=== PATIENT | male | born 1960 | race Caucasian/White ===

== ENCOUNTER → 2020-12-06 09:20 | Outpatient (CLI) | payer MEDICARE ==
[2016-08-25 08:04] VITALS: BMI 28.7
[~2020-12-06 09:20] MED LIST: ALBUTEROL SULF8.5 GM INH; ATIVAN1 MG PO; BAYER CHEWABLE81 MG PO; CRESTOR40 MG PO; EFFEXOR XR150 MG PO; FLOMAX0.4 MG PO; GLUCOPHAGE1000 MG PO; HYZAAR 100-12.51 TAB PO; ISOSORBIDE MONO60 M1 PO; K-TAB10 MEQ PO; LIPITOR80 MG PO; METOPROLOL TART50 MG PO; NORVASC10 MG PO; OMEPRAZOLE20 M1 PO; PAXIL40 MG PO; PLAVIX75 MG PO; PREVACID30 MG PO; TRIGLIDE160 MG PO; ZETIA10 MG PO
== END | disposition home or self-care (01) ==
LOC: D.LAB 09:20
PROVIDERS: ATTEND Thoracic Surgery (Cardiothoracic Vascular Surgery)
DX: C34.90 Malignant neoplasm of unspecified part of unspecified bronchus or lung (principal); E11.9 Type 2 diabetes mellitus without complications

== ENCOUNTER 2021-02-13 11:53 | Inpatient (IN) | payer MEDICARE ==
[~2021-02-13] VITALS: Ht 177.8 cm; Wt 98.2 kg
[2021-02-14] MEDS ORDERED: ABILIFY10 MG PO (14:05)
[2021-02-14] MEDS ORDERED: FUROSEMIDE20 MG PO (14:06)
[2021-02-14] MEDS ORDERED: OXYBUTYNIN CHLOR5 MG PO (14:08)
[2021-02-14] MEDS ORDERED: LIPITOR80 MG PO (14:10)
[2021-02-14] MEDS ORDERED: PROSCAR5 MG PO (14:10)
[2021-02-14] MEDS ORDERED: NORVASC10 MG PO (14:11)
[2021-02-14] MEDS ORDERED: NITROSTAT0.4 MG SL (14:13)
[2021-02-14] MEDS ORDERED: ANORO ELLIPTA1 EACH INH (14:14)
[2021-02-14] MEDS ORDERED: LANTUS INS100 UNITS/ SC (14:16)
[2021-02-14] MEDS ORDERED: HUMULIN R100 UNIT/1 SC (14:16)
[2021-02-14 15:28] LABS: HEMATOCRIT 38.2 % (42.0-54.0); HEMOGLOBIN 12.4 g/dL (13.5-17.5); MCH 28.2 pg (26.0-34.0); MCHC 32.5 g/dL (31.0-37.0); MCV 86.8 fL (80.0-100.0); MEAN PLATELET VOLUME 10.2 fL (7.4-10.4); RBC 4.4 10x6/uL (4.20-6.10); RDW 14.2 % (11.5-14.5); WBC 7.2 10x3/uL (4.8-10.8)
[2021-02-14 15:30] LABS: APTT 25.8 SECONDS (22.8-39.4); INR 0.94 (0.85-1.17); PROTIME 11.6 SECONDS (11.6-15.0)
[2021-02-14 15:32] LABS: ALBUMIN 4.2 g/dL (3.4-5.0); ANION GAP 12.4 mmol/L (8-16); BILIRUBIN - TOTAL 0.27 mg/dL (0.2-1.3); CALCIUM 9.7 mg/dL (8.5-10.1); CARBON DIOXIDE 30.5 mmol/L (21.0-32.0); CREATININE - SERUM 1.4 mg/dL (0.6-1.3); POTASSIUM - SERUM 3.9 mmol/L (3.5-5.1); PROTEIN - SERUM 7.2 g/dL (6.4-8.2)
[2021-02-14 15:54] LABS: BILIRUBIN NEGATIVE (NEGATIVE); KETONE NEGATIVE (NEGATIVE); NITRITE NEGATIVE (NEGATIVE); UROBILINOGEN NORMAL mg/dL (< 2)
[2021-02-18] VITALS (26 sets, daily range): BP systolic 90–148; BP diastolic 39–74; BMI 31.6
--- NOTE | 2021-02-18 09:55 | NUR ---
CVL AND ARTERIAL LINE PLACED BY ANESTHESIA, IZAIAH.
--- NOTE | 2021-02-18 19:25 | NUR ---
Pt resting in bed and doing well with his coughing and deep breathing. The Pt is off his rosetta and insulin gtt. Assessment per flow sheet. Pt has chest tubes x 2 with epidural/[employer]. Popeye Velasco and hospitalist consulted.
[2021-02-19] VITALS (33 sets, daily range): BP systolic 109–156; BP diastolic 41–69; Ht 177.8 cm; Wt 98.2 kg
[2021-02-19 05:32] LABS: BASOPHILS 0.3 % (0-2); EOSINOPHILS 0.1 % (0-7); HEMATOCRIT 31.6 % (42.0-54.0); HEMOGLOBIN 10.7 g/dL (13.5-17.5); LYMPHOCYTES 10.2 % (15-50); MCH 28.4 pg (26.0-34.0); MCHC 33.8 g/dL (31.0-37.0); MEAN PLATELET VOLUME 7.8 fL (7.4-10.4); MONOCYTES 8.1 % (2-11); NEUTROPHILS 81.3 % (40-80); PLATELET COUNT 186 10x3/uL (130-400); RBC 3.76 10x6/uL (4.20-6.10); RDW 15.1 % (11.5-14.5); WBC 10.3 10x3/uL (4.8-10.8)
[2021-02-19 06:11] LABS: ANION GAP 13.9 mmol/L (8-16); BILIRUBIN - TOTAL 0.18 mg/dL (0.2-1.3); CALCIUM 8.2 mg/dL (8.5-10.1); CARBON DIOXIDE 26.9 mmol/L (21.0-32.0); CREATININE - SERUM 1.4 mg/dL (0.6-1.3); POTASSIUM - SERUM 3.8 mmol/L (3.5-5.1); PROTEIN - SERUM 5.7 g/dL (6.4-8.2)
--- NOTE | 2021-02-19 13:25 | OP ---
PATIENT NAME: IGNACIO MORRIS MEDICAL RECORD: [id number] :56 [facility] DATE:02/18/21 SURGEON: GARY WYATT MD DATE OF OPERATION: 02/18/2021 SURGEON: Gary Wyatt MD PROCEDURES PERFORMED: 1. Left upper lobectomy. 2. Mediastinal lymph node dissection. 3. Bronchoscopy. PREOPERATIVE DIAGNOSIS: Non-small cell lung cancer. POSTOPERATIVE DIAGNOSIS: Stage IIIA non-small cell lung cancer. ANESTHESIA: Double lumen general endotracheal anesthesia. ESTIMATED BLOOD LOSS: 100 cc. COMPLICATIONS: None. SPECIMENS: 1. Left upper lobe. 2. Frozen section AP window lymph node. 3. Cultures of therese pus from left upper lobe. 4. Mediastinal lymph nodes sections from AP window, inferior pulmonary ligament, and hilar stations superior, anterior, posterior, and middle. No sizable subcarinal lymph nodes were identified. CONDITION: Stable. DISPOSITION: ICU. OPERATIVE FINDINGS: As expected large lymph nodes around the major vessels at the hilum limiting ability to proceed with safe thoracoscopic surgery. The AP window lymph node was sent for frozen and returned metastatic non-small cell carcinoma. In the medial aspect of the left upper lobe adjacent to the hilum was a circumscribed area that drained therese pus and was cultured. It was unclear if this was a lymph node within the parenchyma or more likely a lung abscess due to bronchial obstruction from the tumor in the left upper lobe. The remainder of the lymph nodes appeared to be anthracotic. Bronchus airtight under 20 cm positive pressure. OPERATIVE INDICATION: Non-small cell carcinoma by percutaneous biopsy of left upper lobe. DESCRIPTION OF PROCEDURE: The patient was brought to the operating suite, double lumen general endotracheal anesthesia was obtained. Position was confirmed by bronchoscopy. The patient turned to the right lateral decubitus position with a separate bronchoscopy performed. Later the tube had to be inserted slightly under bronchoscopic guidance. Left chest was sterilely prepped and draped. Lateral thoracotomy was performed visualizing the hilum. It was freed. Large lymph nodes were noted and OPERATIVE REPORT [id number] IGNACIO MORRIS thoracotomy incision was enlarged. Anterior working port from the scope was later used as chest tube site. The large AP window lymph node was sent for frozen. The branches of the pulmonary artery were dissected out in the fissure, but the superior branch was next to this area of firmness that drained pus. It was only able to be rotated posteriorly after dividing the superior pulmonary vein. The inferior pulmonary ligament was freed up to the inferior pulmonary vein, which was visualized and left intact. Bronchus was then clamped. Lower lobe briefly ventilated, bronchus divided and finally the last superior branch divided with a stapling device. The bronchus was airtight under water at the posterior aspect of the superior segment. Two sites were repaired primarily. No air leak under water. Mediastinal lymph node dissection proceeded. Chest tube was placed superiorly and inferiorly. Lung reinflated. Chest closed with pericostal sutures after using cryotherapy. Two muscle layers, subcutaneous and subcuticular. The patient to ICU stable with respiratory variation, but no air leak. TRANSINT:[id number] Voice Confirmation ID: [id number] DOCUMENT ID: [id number] cc: paola Portillo. GARY WYATT MD at 1325 CC: JUSTICE RIBEIRO MD [id number] DICTATION DATE: 02/18/21 1453 DIRECTOR OF FOOD AND NUTRITION: 02/18/[address] [facility] [address] [place] [address]
--- NOTE | 2021-02-19 15:19 | NUR ---
CVL AND CT DRESSING CHANGED
--- NOTE | 2021-02-19 18:44 | NUR ---
A LINE DCD NO SIGNS OF BLEEDING
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
[2021-02-20] VITALS (44 sets, daily range): BP systolic 109–157; BP diastolic 48–86
[2021-02-20 05:16] LABS: ALBUMIN 2.7 g/dL (3.4-5.0); ANION GAP 9.8 mmol/L (8-16); BASOPHILS 0.4 % (0-2); BILIRUBIN - TOTAL 0.27 mg/dL (0.2-1.3); CALCIUM 8.2 mg/dL (8.5-10.1); CARBON DIOXIDE 28.9 mmol/L (21.0-32.0); CREATININE - SERUM 1.2 mg/dL (0.6-1.3); EOSINOPHILS 0.3 % (0-7); HEMATOCRIT 30.8 % (42.0-54.0); HEMOGLOBIN 10.3 g/dL (13.5-17.5); LYMPHOCYTES 12.2 % (15-50); MCH 28.1 pg (26.0-34.0); MCHC 33.4 g/dL (31.0-37.0); MCV 84.1 fL (80.0-100.0); MEAN PLATELET VOLUME 7.9 fL (7.4-10.4); MONOCYTES 9.5 % (2-11); NEUTROPHILS 77.6 % (40-80); PLATELET COUNT 186 10x3/uL (130-400); POTASSIUM - SERUM 3.7 mmol/L (3.5-5.1); PROTEIN - SERUM 5.9 g/dL (6.4-8.2); RBC 3.66 10x6/uL (4.20-6.10); RDW 15.1 % (11.5-14.5); WBC 9.3 10x3/uL (4.8-10.8)
--- NOTE | 2021-02-20 10:38 | NUR ---
AWAITING MEDICATIONS FROM PHARMACY, SPOKE WITH ROBERT
[2021-02-21] VITALS (24 sets, daily range): BP systolic 125–174; BP diastolic 51–78
[2021-02-21 06:24] LABS: BASOPHILS 0.2 % (0-2); HEMATOCRIT 31.9 % (42.0-54.0); HEMOGLOBIN 10.5 g/dL (13.5-17.5); LYMPHOCYTES 11.7 % (15-50); MCH 27.6 pg (26.0-34.0); MCHC 33.1 g/dL (31.0-37.0); MCV 83.3 fL (80.0-100.0); MEAN PLATELET VOLUME 7.8 fL (7.4-10.4); MONOCYTES 9.9 % (2-11); NEUTROPHILS 77.2 % (40-80); PLATELET COUNT 211 10x3/uL (130-400); RBC 3.82 10x6/uL (4.20-6.10); RDW 15.2 % (11.5-14.5); WBC 8.1 10x3/uL (4.8-10.8)
[2021-02-21 06:36] LABS: ALBUMIN 2.5 g/dL (3.4-5.0); ALKALINE PHOSPHATASE 45 U/L (30-120); ALT (SGPT) 26 U/L (10-68); BILIRUBIN - TOTAL 0.23 mg/dL (0.2-1.3); CALC OSMOLALITY 284 mosm/kg (275-300); CALCIUM 8.5 mg/dL (8.5-10.1); CARBON DIOXIDE 27.4 mmol/L (21.0-32.0); CHLORIDE - SERUM 105 mmol/L (98-107); GLUCOSE 182 mg/dL (74-106); POTASSIUM - SERUM 3.8 mmol/L (3.5-5.1); SODIUM 139 mmol/L (136-145); UREA NITROGEN 17 mg/dL (7-18); eGFR NON AFRICAN AMERICAN 80 mL/min (90-120)
--- NOTE | 2021-02-21 11:39 | NUR ---
BP 167/72. HYDRALIZINE PRN GIVEN.
--- NOTE | 2021-02-21 12:46 | NUR ---
Nutrition Follow-up: POD 3 MARCELL lobectomy, mediastinal lymph node dissection. Pt reports that his appetite is "pretty good"; typically does not eat much breakfast. Denies N/V/C/D, chewing/swallowing difficulties. Diet: Diabetic Wt: 223.7# (02/21) Last BM: 02/21 Labs noted: Glu 182, Alb 2.5 Meds noted: Glucophage, Humulin, electrolyte protocol -Encourage PO intake and honor food preferences within diet restrictions. -RD follow-up: 02/24
[2021-02-22] VITALS (23 sets, daily range): BP systolic 126–152; BP diastolic 49–64
[2021-02-22 05:35] LABS: HEMATOCRIT 30.7 % (42.0-54.0); HEMOGLOBIN 10.2 g/dL (13.5-17.5); MCH 27.8 pg (26.0-34.0); MCHC 33.2 g/dL (31.0-37.0); MCV 83.7 fL (80.0-100.0); MEAN PLATELET VOLUME 7.4 fL (7.4-10.4); RBC 3.67 10x6/uL (4.20-6.10); RDW 15.1 % (11.5-14.5)
[2021-02-22 05:50] LABS: ALBUMIN 2.4 g/dL (3.4-5.0); ALKALINE PHOSPHATASE 46 U/L (30-120); ALT (SGPT) 29 U/L (10-68); BILIRUBIN - TOTAL 0.22 mg/dL (0.2-1.3); CALC OSMOLALITY 284 mosm/kg (275-300); CALCIUM 8.6 mg/dL (8.5-10.1); CARBON DIOXIDE 27.1 mmol/L (21.0-32.0); CHLORIDE - SERUM 106 mmol/L (98-107); CREATININE - SERUM 0.9 mg/dL (0.6-1.3); GLUCOSE 171 mg/dL (74-106); POTASSIUM - SERUM 3.8 mmol/L (3.5-5.1); PROTEIN - SERUM 5.9 g/dL (6.4-8.2); SODIUM 140 mmol/L (136-145); UREA NITROGEN 19 mg/dL (7-18); eGFR NON AFRICAN AMERICAN > 90 mL/min (90-120)
--- NOTE | 2021-02-22 10:12 | NUR ---
DR HENNING AND DR PINA HERE THIS AM ON ROUNDS.
[2021-02-23] VITALS (24 sets, daily range): BP systolic 129–177; BP diastolic 49–75
[2021-02-23 05:29] LABS: BASOPHILS 0.5 % (0-2); EOSINOPHILS 2.3 % (0-7); HEMATOCRIT 31.4 % (42.0-54.0); HEMOGLOBIN 10.5 g/dL (13.5-17.5); LYMPHOCYTES 17.3 % (15-50); MCH 27.7 pg (26.0-34.0); MCHC 33.4 g/dL (31.0-37.0); MCV 83.1 fL (80.0-100.0); MEAN PLATELET VOLUME 7.5 fL (7.4-10.4); MONOCYTES 12.7 % (2-11); NEUTROPHILS 67.2 % (40-80); PLATELET COUNT 247 10x3/uL (130-400); RBC 3.78 10x6/uL (4.20-6.10); RDW 14.9 % (11.5-14.5); WBC 7.1 10x3/uL (4.8-10.8)
[2021-02-23 06:06] LABS: ALBUMIN 2.4 g/dL (3.4-5.0); ALKALINE PHOSPHATASE 47 U/L (30-120); BILIRUBIN - TOTAL 0.15 mg/dL (0.2-1.3); CALC OSMOLALITY 287 mosm/kg (275-300); CALCIUM 8.8 mg/dL (8.5-10.1); CARBON DIOXIDE 27.3 mmol/L (21.0-32.0); CHLORIDE - SERUM 106 mmol/L (98-107); GLUCOSE 191 mg/dL (74-106); POTASSIUM - SERUM 3.9 mmol/L (3.5-5.1); PROTEIN - SERUM 6.1 g/dL (6.4-8.2); SODIUM 141 mmol/L (136-145); UREA NITROGEN 19 mg/dL (7-18); eGFR NON AFRICAN AMERICAN 80 mL/min (90-120)
[2021-02-23 06:21] LABS: ALT (SGPT) 37 U/L (10-68)
--- NOTE | 2021-02-23 08:35 | NUR ---
PT AWAKE, VSS, BREAKFAST TRAY SERVED AND PT EATING WITH OUT DIFFICULTY. EPIDURAL INFUSING AND PT REPORTS ADEQUATE PAIN CONTROLL. CT TO WATER SEAL DRAINAGE.
--- NOTE | 2021-02-23 10:41 | NUR ---
PT BATHED AND LINENS CHANGED.
--- NOTE | 2021-02-23 16:02 | NUR ---
1300- ASSISTED DR WYATT WITH REMOVAL OF CT. ANESTHESIA DCD EPIDURAL. PT ASSISTED PT TO CHAIR 2 HOURS AFTER EPIDURAL DCD. CXR DONE AT 1500 ORDERED.
[2021-02-24] VITALS (17 sets, daily range): BP systolic 123–171; BP diastolic 45–88
[2021-02-24 05:05] LABS: BASOPHILS 0.2 % (0-2); EOSINOPHILS 1.2 % (0-7); HEMATOCRIT 29.8 % (42.0-54.0); HEMOGLOBIN 10.1 g/dL (13.5-17.5); LYMPHOCYTES 12.6 % (15-50); MCHC 33.8 g/dL (31.0-37.0); MCV 83.1 fL (80.0-100.0); MEAN PLATELET VOLUME 7.6 fL (7.4-10.4); MONOCYTES 12.2 % (2-11); NEUTROPHILS 73.8 % (40-80); PLATELET COUNT 282 10x3/uL (130-400); RBC 3.59 10x6/uL (4.20-6.10); RDW 14.9 % (11.5-14.5)
[2021-02-24 05:16] LABS: WBC 9.7 10x3/uL (4.8-10.8)
[2021-02-24 05:50] LABS: ALBUMIN 2.4 g/dL (3.4-5.0); ANION GAP 10.2 mmol/L (8-16); BILIRUBIN - TOTAL 0.21 mg/dL (0.2-1.3); CARBON DIOXIDE 26.7 mmol/L (21.0-32.0); CREATININE - SERUM 1.1 mg/dL (0.6-1.3); POTASSIUM - SERUM 3.9 mmol/L (3.5-5.1); PROTEIN - SERUM 6.3 g/dL (6.4-8.2)
--- NOTE | 2021-02-24 06:30 | NUR ---
PATIENT DID WELL THROUGHOUT SHIFT. TACHYCARDIA AND DYSPNEA NOTED WHEN PATIENT GETS UP TO RESTROOM-RECOVERS QUICKLY WHEN BACK TO REST. NO S/S OF DISTRESS, ALL NEEDS MET THROUGHOUT SHIFT. Roya FORTUNE RN
--- NOTE | 2021-02-24 11:21 | NUR ---
Nutrition Follow-up: POD 6. Pt reports fair appetite. Nursing concerned that pt is not eating enough. Discussed in IDT rounds. Diet: Diabetic PO intake: 50% x 3 yesterday Wt: 216# (02/24) Last BM: 02/23 Labs noted: Na 135, Glu 216, Alb 2.4 Meds noted: Glucophage, Humulin, electrolyte protocol -Encourage PO intake and honor food preferences within diet restrictions. -+Glucerna with meals. -Monitor wt. -RD follow-up: 02/26
[2021-02-24] MEDS ORDERED: HYDROCODON-ACE1 EAC7 PO (15:30)
== END 2021-02-24 17:20 | disposition home or self-care (01) | DRG 164 ==
LOC: D.SDCHOLD 02-18 05:10 → D.CVICU 02-18 05:10 → D.SDCHOLD 02-18 07:30 → D.CVICU 02-18 13:10
PROVIDERS: Family Medicine Adult Medicine; ADMIT Thoracic Surgery (Cardiothoracic Vascular Surgery); ATTEND Thoracic Surgery (Cardiothoracic Vascular Surgery)
PROC: 0BTG0ZZ Resection of Left Upper Lung Lobe, Open Approach (ICD-10-PCS; principal; 2021-02-18 07:30)
PROC: 07B70ZZ Excision of Thorax Lymphatic, Open Approach (ICD-10-PCS; 2021-02-18 07:30)
PROC: 0BJ08ZZ Inspection of Tracheobronchial Tree, Via Natural or Artificial Opening Endoscopic (ICD-10-PCS; 2021-02-18 07:30)
DX: C34.12 Malignant neoplasm of upper lobe, left bronchus or lung (principal); J93.82 Other air leak; E11.65 Type 2 diabetes mellitus with hyperglycemia; J43.9 Emphysema, unspecified; I10 Essential (primary) hypertension; I25.10 Atherosclerotic heart disease of native coronary artery without angina pectoris; G47.33 Obstructive sleep apnea (adult) (pediatric); K21.9 Gastro-esophageal reflux disease without esophagitis; F41.8 Other specified anxiety disorders; M19.90 Unspecified osteoarthritis, unspecified site; E78.5 Hyperlipidemia, unspecified; Z79.84 Long term (current) use of oral hypoglycemic drugs; Z87.891 Personal history of nicotine dependence

== ENCOUNTER → 2021-03-19 10:44 | Outpatient (CLI) | payer MEDICARE ==
[2021-02-19 10:48] VITALS: BMI 31.5
[~2021-03-19 10:44] MED LIST changes: +ABILIFY10 MG PO; +ANORO ELLIPTA1 EACH INH; +FUROSEMIDE20 MG PO; +HUMULIN R100 UNIT/1 SC; +HYDROCODON-ACE1 EAC7 PO; +LANTUS INS100 UNITS/ SC; +NITROSTAT0.4 MG SL; +OXYBUTYNIN CHLOR5 MG PO; +PROSCAR5 MG PO
== END | disposition home or self-care (01) ==
LOC: D.RAD 10:44
PROVIDERS: ATTEND Thoracic Surgery (Cardiothoracic Vascular Surgery)
DX: Z98.890 Other specified postprocedural states (principal)